=== PATIENT | female | born 1980 | race Caucasian/White ===

== ENCOUNTER 2017-12-18 12:06 | Emergency (ER) | payer OTHER ==
[2017-12-18 12:24] VITALS: BP 119/60; PULSE 93; RESP 18; TEMP 98.8
--- NOTE | 2017-12-18 12:52 | ED ---
General Adult HPI - General Chief complaint: Skin/Abscess/Foreign Body Stated complaint: post op pain Time Seen by Provider: 12/18/17 12:49 Source: patient, RN notes reviewed Mode of arrival: ambulatory Limitations: no limitations - History of Present Illness Initial comments: 37-year-old female presents to the emergency department for a chief complaint of possible foreign body in incision 2 days. Patient states she had a 6 weeks ago. No infections or difficulty with the incision. However yesterday she noticed a sharp object poking around the incision area. Patient believes this is a staple. Patient states she had external ottoniel applied. They were removed and counted. Patient states the area is uncomfortable. Patient sees OB down at [facility]. Patient has not contacted her OB. Patient denies any other complaints at this time. No signs of infection noted. No fevers or chills at home. No shortness of breath, chest pain, abdominal pain, nausea or vomiting. - Related Data Allergies Allergy/AdvReac Type Severity Reaction Status Date / Time diphenhydramine Allergy Unknown Verified 12/18/17 12:24 [From Miles] Review of Systems ROS Statement: Those systems with pertinent positive or pertinent negative responses have been documented in the HPI. ROS Other: All systems not noted in ROS Statement are negative. Past Medical History Past Medical History: No Reported History History of Any Multi-Drug Resistant Organisms: None Reported Past Surgical History: Section Additional Past Surgical History / Comment(s): kidney stones Past Psychological History: Anxiety, Bipolar, Depression Smoking Status: Current every day smoker Past Alcohol Use History: None Reported Past Drug Use History: None Reported General Exam Limitations: no limitations General appearance: alert, in no apparent distress Head exam: Present: atraumatic, normocephalic, normal inspection Respiratory exam: Present: normal lung sounds bilaterally. Absent: respiratory distress, wheezes, rales, rhonchi, stridor Cardiovascular Exam: Present: regular rate, normal rhythm, normal heart sounds. Absent: systolic murmur, diastolic murmur, rubs, gallop, clicks GI/Abdominal exam: Present: soft, normal bowel sounds, other (Patient has a well -healing transverse). Absent: distended, tenderness, guarding (Patient has a well-healing transverse section scar. There is a small object poking under the skin. No signs of infection noted. No breaks in the skin besides the incision. No redness or streaking redness. No drainage from the incision.) , rebound, rigid Course Vital Signs 12/18/17 12:20 Temperature 98.8 F Pulse Rate 93 Respiratory 18 Rate Blood Pressure 119/60 O2 Sat by Pulse 100 Oximetry Medical Decision Making - Medical Decision Making 37-year-old female presents to the emergency department for chief complaint of irritation of the incision from her section 6 weeks ago. Patient started to notice a poking feeling 2 days ago. Patient states she sees a small sharp object poking at her abdomen. Vitals are within normal limits and patient is afebrile. On exam there is a small object poking at the skin. It is not through the skin. There are no signs of infection and the surgical incision is healing nicely. Patient has no abdominal pain otherwise. She just states it is irritating. X-ray of the abdomen shows no acute intra-abdominal abnormality. X-ray reviewed with Dr. Tavarez and myself shows no metallic soft tissue foreign body noted. Discussed with the patient that this is potentially the tail end of a dissolvable stitch. Discussed monitoring the area with the patient for any signs of infections or worsening symptoms. Patient agreed to contact her OB by telephone at [facility] to discuss if any treatment is needed. Patient states she is happy to know it is not a metallic object or staple. She will return to the emergency Department if she has any worsening symptoms, worsening abdominal pain, or any signs of infection. Disposition Clinical Impression: Incisional irritation Disposition: HOME SELF-CARE Condition: Good Instructions: Soft Tissue Foreign Body (ED) Additional Instructions: Please monitor the area for any progressing symptoms or signs of infection. Please follow-up with dub room engineer to determine course of treatment. Return to the emergency department if you have any worsening symptoms. Motrin or Tylenol for pain relief. Is patient prescribed a controlled substance at d/c from ED?: No Referrals: Jo Puente MD [Primary Care Provider] - 1-2 days Time of Disposition: 13:52
--- NOTE | 2017-12-18 13:39 | XR ---
EXAMINATION TYPE: XR abdomen 2V , 3 VIEWS DATE OF EXAM ORDERED: 12/18/2017 HISTORY: Pain. COMPARISON: None. FINDINGS: There are scattered air-fluid levels noted on the lateral view. There is no evidence of eric wel dilatation. There are phleboliths in the pelvis. IMPRESSION: I DO NOT SEE AN ACUTE INTRA-ABDOMINAL ABNORMALITY.
== END 2017-12-18 14:01 | disposition home or self-care (01) ==
LOC: EC 12:06
DX: L98.8 Other specified disorders of the skin and subcutaneous tissue (principal); F17.200 Nicotine dependence, unspecified, uncomplicated; Z88.8 Allergy status to other drugs, medicaments and biological substances
CPT/HCPCS: 74019; 99283

== ENCOUNTER 2018-03-19 17:44 | Emergency (ER) | payer OTHER ==
[2018-03-19 18:02] VITALS: RESP 18; TEMP 98.6
[2018-03-19] MEDS ORDERED: SODIUM CHLORIDE 0.9% 1,000 ML IV STA (18:15)
[2018-03-19] MEDS ORDERED: ONDANSETRON 4 MG/2 ML VIAL IVP STA (18:15)
[2018-03-19] MEDS ORDERED: KETOROLAC 30 MG/ML 1 ML VIAL IVP STA ×2 (18:15→20:47)
[2018-03-19] MEDS ORDERED: SODIUM CHLORIDE 0.9% 2,000 ML IV STA (18:15)
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
[2018-03-19 18:43] LABS: Basophils % (A) 0 %; Eosinophils # (A) 0.2 k/uL (0-0.7); Eosinophils % (A) 3 %; HCT 40.9 % (34.0-46.0); HGB 13.7 gm/dL (11.4-16.0); Lymphocytes # (A) 3.6 k/uL (1.0-4.8); Lymphocytes % (A) 42 %; MCH 29.4 pg (25.0-35.0); MCHC 33.4 g/dL (31.0-37.0); MCV 88.2 fL (80.0-100.0); Mean Platelet Volume 6.4; Monocytes # (A) 0.4 k/uL (0-1.0); Monocytes % (A) 4 %; Neutrophils # (A) 4.2 k/uL (1.3-7.7); Neutrophils % (A) 48 %; Platelet Count 252 k/uL (150-450); RBC 4.64 m/uL (3.80-5.40); RDW 15.3 % (11.5-15.5); WBC 8.6 k/uL (3.8-10.6)
[2018-03-19 18:50] LABS: ALT 71 U/L (9-52); AST 52 U/L (14-36); Albumin 4.1 g/dL (3.5-5.0); Alkaline Phosphatase 115 U/L (38-126); Amylase 110 U/L (30-110); Anion Gap 7 mmol/L; Blood Urea Nitrogen 13 mg/dL (7-17); Calcium 9.3 mg/dL (8.4-10.2); Carbon Dioxide 31 mmol/L (22-30); Chloride 104 mmol/L (98-107); Glucose 86 mg/dL (74-99); Lipase 174 U/L (23-300); Potassium 4.3 mmol/L (3.5-5.1); Sodium 142 mmol/L (137-145); Total Bilirubin 0.3 mg/dL (0.2-1.3); Total Protein 6.6 g/dL (6.3-8.2)
--- NOTE | 2018-03-19 19:50 | XR ---
EXAMINATION TYPE: XR KUB DATE OF EXAM: 03/19/2018 6:46 PM CLINICAL HISTORY: Abdominal pain and vomiting TECHNIQUE: Two Upright KUB images of the abdomen are obtained. COMPARISON: Abdominal x-ray 12/09/2018. FINDINGS: No pneumoperitoneum. No dilated loops of large or small bowel. No visceromegaly or abnormal calcifications. Benign phleboliths are seen within the low pelvis. Osseous structures are intact. Grace ng bases are unremarkable. IMPRESSION: No acute intra-abdominal process.
[2018-03-19 20:28] LABS: Appearance,Urine Clear (Clear); Bacteria,Urine Rare /hpf; Bilirubin,Urine Negative (Negative); Blood,Urine Negative (Negative); Color,Urine Yellow; Glucose,Urine (UA) Negative (Negative); Hyaline Casts,Urine 4 /lpf (0-2); Ketones,Urine Trace (Negative); Leukocyte Esterase,Urine Trace (Negative); Mucus,Urine Occasional /hpf; Nitrite,Urine Negative (Negative); Protein,Urine 1+ (Negative); RBC,Urine 4 /hpf (0-5); Specific Gravity,Urine 1.028 (1.001-1.035); Squamous Epithelial Cell,Urine 3 /hpf (0-4); WBC,Urine 2 /hpf (0-5)
[2018-03-19 20:59] VITALS: BP 113/56; PULSE 72
== END 2018-03-19 20:58 | disposition home or self-care (01) ==
LOC: EC 17:44
DX: K52.9 Noninfective gastroenteritis and colitis, unspecified (principal); E86.0 Dehydration; R51 Headache; F17.200 Nicotine dependence, unspecified, uncomplicated; Z86.19 Personal history of other infectious and parasitic diseases; Z88.8 Allergy status to other drugs, medicaments and biological substances
CPT/HCPCS: 36415; 80053; 82150; 83690; 85025; 81001; 74018; 99284; 96374; 96375; 96376; 96361 ×2; J2405; J1885

== ENCOUNTER 2018-09-03 19:51 | Emergency (ER) | payer OTHER ==
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
[2018-09-03 21:31] LABS: Appearance,Urine Clear (Clear); Bilirubin,Urine Negative (Negative); Blood,Urine Negative (Negative); Color,Urine Yellow; Glucose,Urine (UA) Negative (Negative); Ketones,Urine Negative (Negative); Leukocyte Esterase,Urine Negative (Negative); Nitrite,Urine Negative (Negative); PH, Urine 6.5 (5.0-8.0); Protein,Urine Negative (Negative); Specific Gravity,Urine 1.018 (1.001-1.035); Urobilinogen,Urine <2.0 mg/dL (<2.0)
[2018-09-03 21:45] LABS: Amphetamine Screen,Urine Not Detected (NotDetected); Barbiturate Screen,Urine Not Detected (NotDetected); Benzodiazepines Screen,Urine Not Detected (NotDetected); Cocaine Screen,Urine Not Detected (NotDetected); Methadone Screen, Urine Not Detected (NotDetected); Opiate Screen,Urine Detected (NotDetected); Oxycodone Screen, Urine Not Detected (NotDetected); Phencyclidine Screen,Urine Not Detected (NotDetected); Tricyclic Antidepressant,Urine Not Detected (NotDetected); Urn Cannabinoid Scrn Not Detected (NotDetected)
[2018-09-03 22:12] VITALS: BP 120/70; PULSE 78; RESP 18; TEMP 98.2
== END 2018-09-03 22:12 | disposition home or self-care (01) ==
LOC: EC 19:51
DX: R82.5 Elevated urine levels of drugs, medicaments and biological substances (principal); F17.200 Nicotine dependence, unspecified, uncomplicated; Z88.8 Allergy status to other drugs, medicaments and biological substances; Z86.19 Personal history of other infectious and parasitic diseases
CPT/HCPCS: 80306; 81003; 99283

== ENCOUNTER 2020-06-20 07:39 | Emergency (ER) | payer OTHER ==
[2020-06-20] MEDS ORDERED: ACETAMINOPHEN TAB 500 MG TAB PO STA (07:56)
[2020-06-20] MEDS ORDERED: PROMETHAZINE HCL 6.25 MG/5 ML CUP PO STA (07:56)
[2020-06-20] MEDS ORDERED: methylPREDNISolone SOD SUCCI 125 MG/2 ML VIAL IM ONE (07:57)
--- NOTE | 2020-06-20 08:04 | ED ---
General Adult HPI - General Chief complaint: Upper Respiratory Infection Stated complaint: congestion/nausea Time Seen by Provider: 06/20/20 07:48 Source: patient, RN notes reviewed, old records reviewed Mode of arrival: ambulatory Limitations: no limitations - History of Present Illness Initial comments: Patient is a 39-year-old female presents emergency room today with cough congestion headache bodyaches as well as left ear pain. Patient reports that symptoms started on Tuesday last week. Patient states that she has been exposed to other people who had bronchitis. She reports that they'll tested negative for cold that infection. 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 Patient reports that she's had chills but no recorded fevers at home. Did have some Motrin earlier today. - Related Data Previous Rx's Medication Instructions Recorded Ibuprofen 800 mg PO Q6HR PRN #20 tablet 03/19/18 Ondansetron Odt [Zofran Odt] 4 mg PO Q8HR PRN #10 tab 03/19/18 Azithromycin [Zithromax Z-pack (6 250 mg PO DIRECTED #6 tab 06/20/20 tabs)] Promethazine/Dextromethorphan 5 ml PO TID #120 ml 06/20/20 [Phenergan DM Syrup] predniSONE [Deltasone] 20 mg PO DIRECTED #12 tab 06/20/20 Allergies Allergy/AdvReac Type Severity Reaction Status Date / Time diphenhydramine Allergy Unknown Verified 06/20/20 07:45 [From Benadryl] Review of Systems ROS Statement: Those systems with pertinent positive or pertinent negative responses have been documented in the HPI. ROS Other: All systems not noted in ROS Statement are negative. Past Medical History Past Medical History: No Reported History Additional Past Medical History / Comment(s): Hep C, heroin addict (clean [id number]) History of Any Multi-Drug Resistant Organisms: None Reported Past Surgical History: Section Additional Past Surgical History / Comment(s): kidney stones Past Psychological History: Anxiety, Bipolar, Depression Smoking Status: Current every day smoker Past Alcohol Use History: Rare Past Drug Use History: None Reported General Exam - General Exam Comments Initial Comments: 39-year-old female. Patient presents mild discomfort. Limitations: no limitations General appearance: alert, in no apparent distress Head exam: Present: atraumatic, normocephalic, normal inspection Eye exam: Present: normal appearance, PERRL, EOMI. Absent: scleral icterus, conjunctival injection, periorbital swelling ENT exam: Present: normal exam, normal oropharynx (Erythematous oropharynx.), mucous membranes moist Neck exam: Present: normal inspection. Absent: tenderness, meningismus, lymphadenopathy Respiratory exam: Present: normal lung sounds bilaterally, other (Dry cough). Absent: respiratory distress, wheezes, rales, rhonchi, stridor Cardiovascular Exam: Present: regular rate, normal rhythm, normal heart sounds. Absent: systolic murmur, diastolic murmur, rubs, gallop, clicks GI/Abdominal exam: Present: soft, normal bowel sounds. Absent: distended, tenderness, guarding, rebound, rigid Extremities exam: Present: normal inspection, full ROM, normal capillary refill. Absent: tenderness, pedal edema, joint swelling, calf tenderness Back exam: Present: normal inspection Neurological exam: Present: alert, oriented X3, CN II-XII intact Psychiatric exam: Present: normal affect, normal mood Skin exam: Present: warm, dry, intact, normal color. Absent: rash Course Vital Signs 06/20/20 06/20/20 07:42 08:36 Temperature 97.9 F 98.6 F Pulse Rate 84 98 Respiratory 22 20 Rate Blood Pressure 131/96 122/85 O2 Sat by Pulse 99 99 Oximetry Medical Decision Making - Medical Decision Making 39-year-old female presents with earache, cough congestion and chills body aches for the past 5 days. Patient is a smoker and reports she frequently and pneumonia. This time patient's current chest is pending. She was given Tylenol cough syrup and I am slightly Medrol. Patient's chest x-ray shows chronic peripheral changes without acute pulmonary consolidation. Patient reported the results. Discussed putting the Patient at this time and short course of steroids and azithromycin for atypical bacteria . She does work in a alf setting. I discussed Patient is a self quarantined until results of covert testing as well. All questions answered. - Lab Data Lab Results 06/20/20 Range/Units 08:02 Influenza Type A RNA Not Detected (Not Detectd) Influenza Type B (PCR) Not Detected (Not Detectd) - Radiology Data Radiology results: report reviewed Chronic parenchymal changes bilateral suspected without acute infiltrate. Disposition Clinical Impression: Acute bronchitis Disposition: HOME SELF-CARE Condition: Good Instructions (If sedation given, give patient instructions): Upper Respiratory Infection (ED), Acute Bronchitis (ED) Additional Instructions: Please use medication as discussed. Self quarantine until results of COVID testing. Please follow up with family doctor if symptoms have not improved over the next two days. Please return to the emergency room if your symptoms increase or worsen or for any other concerns. Prescriptions: predniSONE [Deltasone] 20 mg PO DIRECTED #12 tab Promethazine/Dextromethorphan [Phenergan DM Syrup] 5 ml PO TID #120 ml Azithromycin [Zithromax Z-pack (6 tabs)] 250 mg PO DIRECTED #6 tab Is patient prescribed a controlled substance at d/c from ED?: No Referrals: Jo Puente MD [Primary Care Provider] - 1-2 days Time of Disposition: 09:05
--- NOTE | 2020-06-20 08:27 | XR ---
EXAMINATION TYPE: XR chest 2V DATE OF EXAM: 06/20/2020 COMPARISON: NONE HISTORY: Cough. TECHNIQUE: Frontal and lateral views of the chest are obtained. FINDINGS: Reticular interstitial prominence bilaterally. No pleural effusion or pneumothorax seen b ilaterally. No suspicious focal airspace opacity. The cardiac silhouette size is within normal limits . The osseous structures are intact. IMPRESSION: Chronic parenchymal changes bilaterally suspected without acute infiltrate.
[2020-06-20 08:37] VITALS: BP 122/85; PULSE 98; RESP 20; TEMP 98.6
== END 2020-06-20 09:20 | disposition home or self-care (01) ==
LOC: EC 07:39
DX: J20.9 Acute bronchitis, unspecified (principal); H92.02 Otalgia, left ear; F17.200 Nicotine dependence, unspecified, uncomplicated; Z88.8 Allergy status to other drugs, medicaments and biological substances; Z20.828 Contact with and (suspected) exposure to other viral communicable diseases
CPT/HCPCS: 87502; 71046; 99284; 96372; U0003; J2930

== ENCOUNTER → 2021-01-27 | Outpatient (CLI) | payer OTHER ==
[2021-01-27 19:22] LABS: Basophils # (A) 0.04 X 10*3/uL (0.00-0.10); Basophils % (A) 0.5 %; Eosinophils # (A) 0.18 X 10*3/uL (0.04-0.35); Eosinophils % (A) 2.4 %; HCT 42.4 % (37.2-46.3); HGB 14.1 g/dL (12.0-15.0); Lymphocytes # (A) 2.12 X 10*3/uL (0.90-5.00); Lymphocytes % (A) 28.8 %; MCH 30.5 pg (27.0-32.0); MCHC 33.3 g/dL (32.0-37.0); MCV 91.6 fL (80.0-97.0); Mean Platelet Volume 8.7 fL (9.5-12.2); Monocytes # (A) 0.49 X 10*3/uL (0.20-1.00); Monocytes % (A) 6.6 %; Neutrophils # (A) 4.52 X 10*3/uL (1.80-7.70); Neutrophils % (A) 61.4 %; Platelet Count 236 X 10*3/uL (140-440); RBC 4.63 X 10*6/uL (4.10-5.20); WBC 7.37 X 10*3/uL (4.50-10.00)
[2021-01-27 23:14] LABS: Erythrocyte Sedimentation Rate 1 mm/Hr (0-20)
== END | disposition home or self-care (01) ==
LOC: LABWHC1 14:05
PROVIDERS: ATTEND Family Medicine
DX: R09.1 Pleurisy (principal)
CPT/HCPCS: 36415; 85025; 85379; 85652; 86141

== ENCOUNTER 2021-06-11 16:36 | Emergency (ER) | payer OTHER ==
[2021-06-11 17:29] VITALS: BP 119/57; PULSE 95; RESP 18; TEMP 99.4
--- NOTE | 2021-06-11 17:47 | ED ---
Recheck HPI - General Chief Complaint: Recheck/Abnormal Lab/Rx Stated Complaint: Med Refill Time Seen by Provider: 06/11/21 17:31 Source: patient, EMS, RN notes reviewed Mode of arrival: EMS Limitations: no limitations - History of Present Illness Initial Comments: Patient is a 40-year-old female presenting to emergency Department requesting a medication refill. Patient states she has history of bipolar and took her last dose of her medication this morning. She takes triileptal 600mg TID. She took her last dose this morning. She has an appointment with her counselor on Tuesday of next week, she has been calling for the past couple days for a cancellation appointment however she has been unsuccessful. She is not sure if they will will refill her medications and she is scared to go without. Patient denies any suicidal or homicidal thoughts at this time. She denies any fevers or chills, she has no further complaints today. Her vitals are stable. - Related Data Previous Rx's Medication Instructions Recorded Ibuprofen 800 mg PO Q6HR PRN #20 tablet 03/19/18 Ondansetron Odt [Zofran Odt] 4 mg PO Q8HR PRN #10 tab 03/19/18 Azithromycin [Zithromax Z-pack (6 250 mg PO DIRECTED #6 tab 06/20/20 tabs)] Promethazine/Dextromethorphan 5 ml PO TID #120 ml 06/20/20 [Phenergan DM Syrup] predniSONE [Deltasone] 20 mg PO DIRECTED #12 tab 06/20/20 OXcarbazepine 600 mg PO TID 7 Days #21 tablet 06/11/21 Allergies Allergy/AdvReac Type Severity Reaction Status Date / Time diphenhydramine Allergy Unknown Verified 06/11/21 17:29 [From Benadryl] Review of Systems ROS Statement: Those systems with pertinent positive or pertinent negative responses have been documented in the HPI. ROS Other: All systems not noted in ROS Statement are negative. Past Medical History Past Medical History: No Reported History Additional Past Medical History / Comment(s): Hep C, heroin addict (clean [id number]) History of Any Multi-Drug Resistant Organisms: None Reported Past Surgical History: Section Additional Past Surgical History / Comment(s): kidney stones Past Psychological History: Anxiety, Bipolar, Depression Smoking Status: Current every day smoker Past Alcohol Use History: Rare Past Drug Use History: None Reported General Exam - General Exam Comments Initial Comments: GENERAL: Patient is well-developed and well-nourished. Patient is nontoxic and in no acute distress. HEAD: Atraumatic, normocephalic. EYES: Pupils equal round and reactive to light, extraocular movements intact, sclera anicteric, conjunctiva are normal. Eyelids were unremarkable. LUNGS: Unlabored respirations. Breath sounds clear to auscultation bilaterally and equal. No wheezes rales or rhonchi. HEART: Regular rate and rhythm without murmurs, rubs or gallops. MUSCULOSKELETAL: Normal extremities with adequate strength and normal range of motion, no pitting or edema. No clubbing or cyanosis. NEUROLOGICAL: Patient is alert and oriented x 3. SKIN: Warm, Dry, normal turgor, no rashes or lesions noted. Limitations: no limitations Course Vital Signs 06/11/21 17:26 Temperature 99.4 F Pulse Rate 95 Respiratory 18 Rate Blood Pressure 119/57 O2 Sat by Pulse 100 Oximetry Medical Decision Making - Medical Decision Making Patient is a 40-year-old female here with history of bipolar, requesting a medication refill until Tuesday when her appointment with [facility] is scheduled. She takes trileptal 600mg TID. Last dose was this morning. I will refer her prescription for enough to last until her appointment date. She is agreeable to this. She is stable for discharge. Disposition Clinical Impression: Encounter for medication refill Disposition: HOME SELF-CARE Condition: Stable Instructions (If sedation given, give patient instructions): Medicine Refill (ED) Additional Instructions: Please return to the Emergency Department if symptoms worsen or any other concerns. Take medication as prescribed. Follow-up with [facility] on Tuesday. Prescriptions: OXcarbazepine 600 mg PO TID 7 Days #21 tablet Is patient prescribed a controlled substance at d/c from ED?: No Referrals: Jo Puente MD [Primary Care Provider] - 1-2 days Time of Disposition: 18:01
== END 2021-06-11 18:22 | disposition home or self-care (01) ==
LOC: SUPCPDRO 16:36 → EC 16:36
DX: Z76.0 Encounter for issue of repeat prescription (principal); F31.9 Bipolar disorder, unspecified; F41.9 Anxiety disorder, unspecified; F17.200 Nicotine dependence, unspecified, uncomplicated; Z79.1 Long term (current) use of non-steroidal anti-inflammatories (NSAID); Z79.52 Long term (current) use of systemic steroids; Z79.899 Other long term (current) drug therapy
CPT/HCPCS: 99282

== ENCOUNTER 2021-10-19 08:00 | Emergency (ER) | payer OTHER ==
[2021-10-19 08:04] VITALS: BP 146/78; PULSE 100; RESP 20; TEMP 98.6
--- NOTE | 2021-10-19 08:41 | ED ---
Fall HPI - General Chief Complaint: Fall Stated Complaint: slip & fall Time Seen by Provider: 10/19/21 08:16 Source: patient, RN notes reviewed Mode of arrival: ambulatory Limitations: no limitations - History of Present Illness Initial Comments: 40-year-old female presents emergency Department with chief complaint slip and fall. She states happened on leaving work. Patient complaint of left- sided rib pain, buttocks, low back pain. She denies any bowel, bladder incontinence or retention or saddle anesthesias no symptoms that radiate down her legs. Patient states that she does have some bruising, just been more sore than before. She does not feel short of breath she does state it hurts to twist and bend, pain in her ribs and buttocks region. She has no abdominal pain and anterior chest pain no head injury no loss conscious. - Related Data Home Medications Medication Instructions Recorded Confirmed Acetaminophen [Tylenol] 650 mg PO Q6H PRN 10/19/21 10/19/21 Albuterol Sulfate [Proair Hfa] 2 puff INHALATION RT-Q4H PRN 10/19/21 10/19/21 Ergocalciferol [Vitamin D2 (1250 1,250 mcg PO THFR 10/19/21 10/19/21 Mcg = 70587 Iu)] Fluticasone/Salmeterol [Advair 1 puff INHALATION RT-BID 10/19/21 10/19/21 250-50 Diskus] Gabapentin 300 mg PO Q4H 10/19/21 10/19/21 Ibuprofen [Motrin Ib] 600 mg PO Q6H PRN 10/19/21 10/19/21 OXcarbazepine 300 mg PO Q6H 10/19/21 10/19/21 ondansetron HCL [Zofran] 8 mg PO TID PRN 10/19/21 10/19/21 Previous Rx's Medication Instructions Recorded Ibuprofen [Motrin] 600 mg PO Q8HR PRN #30 tab 10/19/21 Allergies Allergy/AdvReac Type Severity Reaction Status Date / Time diphenhydramine AdvReac insomnia Verified 10/19/21 09:44 [From Benadryl] Review of Systems ROS Statement: Those systems with pertinent positive or pertinent negative responses have been documented in the HPI. ROS Other: All systems not noted in ROS Statement are negative. Past Medical History Past Medical History: No Reported History Additional Past Medical History / Comment(s): Hep C, heroin addict (clean [id number]) History of Any Multi-Drug Resistant Organisms: None Reported Past Surgical History: Section Additional Past Surgical History / Comment(s): kidney stones Past Psychological History: Anxiety, Bipolar, Depression Smoking Status: Current every day smoker Past Alcohol Use History: Rare Past Drug Use History: None Reported General Exam Limitations: no limitations General appearance: alert, in no apparent distress Head exam: Present: atraumatic, normocephalic, normal inspection Eye exam: Present: normal appearance, PERRL, EOMI. Absent: scleral icterus, conjunctival injection, periorbital swelling Neck exam: Present: normal inspection, full ROM. Absent: tenderness, meningismus, lymphadenopathy Respiratory exam: Present: normal lung sounds bilaterally, chest wall tenderness. Absent: respiratory distress, wheezes, rales, rhonchi, stridor Cardiovascular Exam: Present: regular rate, normal rhythm, normal heart sounds. Absent: systolic murmur, diastolic murmur, rubs, gallop, clicks GI/Abdominal exam: Present: soft, normal bowel sounds. Absent: distended, tenderness, guarding, rebound, rigid Extremities exam: Present: normal inspection, full ROM, normal capillary refill. Absent: tenderness, pedal edema, joint swelling, calf tenderness Back exam: Present: full ROM, tenderness, paraspinal tenderness, vertebral tenderness. Absent: CVA tenderness (R), CVA tenderness (L), muscle spasm Skin exam: Present: warm, dry, intact, normal color. Absent: rash Course Vital Signs 10/19/21 08:01 Temperature 98.6 F Pulse Rate 100 Respiratory 20 Rate Blood Pressure 146/78 O2 Sat by Pulse 100 Oximetry Medical Decision Making - Medical Decision Making X-rays reviewed no acute findings. Patient has buttocks contusion, rib contusion. Patient discharged in stable condition return parameters were discussed. Patient has no red flag symptoms. Disposition Clinical Impression: Fall, Coccyx contusion, Contusion of rib on left side Disposition: HOME SELF-CARE Condition: Stable Instructions (If sedation given, give patient instructions): Rib Contusion (ED) Additional Instructions: Please return to the Emergency Department if symptoms worsen or any other concerns. Prescriptions: Ibuprofen [Motrin] 600 mg PO Q8HR PRN #30 tab PRN Reason: Pain Is patient prescribed a controlled substance at d/c from ED?: No Referrals: Jo Puente MD [Primary Care Provider] - 1-2 days Time of Disposition: 10:31
--- NOTE | 2021-10-19 09:32 | XR ---
AP pelvis and sacrum, coccyx, lumbar spine HISTORY: Trauma and pain 3 views of the sacrum and coccyx, single frontal view the pelvis, 3 views the lumbar spine submitted Bone mineralization, joint spaces and alignment are maintained. IMPRESSION: No acute fracture, dislocation, or subluxation of the lumbar spine, pelvis, sacrum or davis cyx
--- NOTE | 2021-10-19 10:09 | XR ---
EXAMINATION TYPE: XR ribs LT w pa chest xray DATE OF EXAM: 10/19/2021 COMPARISON: Chest x-ray 06/20/2020 HISTORY: Pain slip and fall TECHNIQUE: Chest exam the frontal projection. Left ribs are examined in 2 views. FINDINGS: The heart size is normal. Pulmonary vasculature is normal. The lungs are clear. No pneumoth orax is evident. No displaced rib fractures are identified. IMPRESSION: 1. No acute pulmonary process. 2. No acute rib fractures identified. Follow-up can be performed as clinically indicated.
[2021-10-19] MEDS ORDERED: ACET/COD 300 MG/30 MG STARTER PACK 6 TAB BTL PO STA (10:32)
== END 2021-10-19 10:55 | disposition home or self-care (01) ==
LOC: EC 08:00
DX: S30.0XXA Contusion of lower back and pelvis, initial encounter (principal); S20.20XA Contusion of thorax, unspecified, initial encounter; F31.9 Bipolar disorder, unspecified; F41.9 Anxiety disorder, unspecified; F17.200 Nicotine dependence, unspecified, uncomplicated; Z79.51 Long term (current) use of inhaled steroids; Z79.899 Other long term (current) drug therapy; W01.0XXA Fall on same level from slipping, tripping and stumbling without subsequent striking against object, initial encounter
CPT/HCPCS: 72100; 72170; 72220; 99284